=== PATIENT | female | born 1970 | race African-American/Black ===

== ENCOUNTER 2017-02-18 05:58 | Emergency (ER) | payer OTHER, SELFPAY | END 2017-02-18 07:46 | disposition home or self-care (01) | LOC: ERS 05:58 | DX: L25.2 Unspecified contact dermatitis due to dyes (principal); F32.9 Major depressive disorder, single episode, unspecified; F17.200 Nicotine dependence, unspecified, uncomplicated | CPT/HCPCS: 99283 ==

== ENCOUNTER 2018-01-07 12:03 | Emergency (ER) | payer OTHER ==
[2018-01-07] MEDS ORDERED: Lidocaine Viscous Sol 2% 15 ml UD Cup ONE (12:43)
[2018-01-07] MEDS ORDERED: Mag-Al 1200 mg/1200 mg/30 ML UDCUP ONE (12:43)
--- NOTE | 2018-01-07 13:08 | RAD ---
SOFT TISSUE NECK TWO VIEWS: HISTORY: Discomfort and swallowing difficulties. Feels like a foreign body is in place. TECHNIQUE: AP and lateral views of the soft tissue neck are obtained. FINDINGS: Large anterior osteophytes are seen at the C4, C5, and C6 levels. This likely accounts for the patie nt's feeling of a foreign body, as it is in the origin of the esophagus. No definite evidence of rad iopaque foreign body is seen. 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 No evidence of a radiopaque foreign body is se en. POS: [facility]
== END 2018-01-07 14:22 | disposition home or self-care (01) ==
LOC: ERS 12:03
DX: R13.10 Dysphagia, unspecified (principal); I10 Essential (primary) hypertension; F32.9 Major depressive disorder, single episode, unspecified; F17.200 Nicotine dependence, unspecified, uncomplicated
CPT/HCPCS: 70360